=== PATIENT | female | born 1990 | race Caucasian/White ===

== ENCOUNTER 2018-07-15 10:06 | Inpatient (IN) | payer MEDICAID ==
[~2018-07-15] VITALS: Ht 160 cm; Wt 92.7 kg
[~2018-07-15 10:06] MED LIST: EPHEDrine SULFATE 50 MG/5 ML SYG ONE; FER325 PO; PREN1TAB49 PO
[2018-07-15] MEDS ORDERED: METHYLERGONOVINE 0.2 MG INJ IM PRN ×2 (10:30→18:30)
[2018-07-15] MEDS ORDERED: CARBOPROST 250 MCG INJ IM PRN ×2 (10:30→18:30)
[2018-07-15] MEDS ORDERED: MISOPROSTOL 200 MCG TAB PR PRN ×2 (10:30→18:30)
[2018-07-15] MEDS ORDERED: OXYTOCIN 30 UNITS/LR 500 ML IV PRN ×2 (10:30→18:30)
[2018-07-15] MEDS ORDERED: CEFAZOLIN 2 GM/50 ML (PMX) 50 ML IVPB SCH (10:30)
[2018-07-15 10:31] VITALS: BMI 28.4
[2018-07-15 10:45] VITALS: BP 109/74; PULSE 69; RESP 17
[2018-07-15 11:03] VITALS: BP 144/89; PULSE 106; RESP 18; Ht 160 cm; Wt 92.7 kg
[2018-07-15] MEDS: LACTATED RINGER'S 1,000 ML IV SCH (11:12)
--- NOTE | 2018-07-15 13:17 | PREAC ---
Date/Time of Note Date/Time of Note DATE: 07/15/18 TIME: 13:15 Anesthesia Eval and Record Evaluation Time Pre-Procedure Interview DATE: 07/15/18 TIME: 13:15 Age 27 Sex female NPO: 8 hrs Preoperative diagnosis Twin Planned procedure Repeat C/S Past Medical History Past Medical History: Includes GI: Obesity Heme: Anemia Surgery & Anesthesia Issues No known issue Meds Anticoagulation: No Beta Ronnie within 24 hr: No Reason Beta Ronnie not given: Pt. not on B-Ronnie Reported Medications Ferrous Sulfate* (Ferrous Sulfate*) 325 Mg Tabec, 325 MG PO DAILY, TAB 01/30/14 Vits W-Ca,Fe,Fa(<1MG) () 1 Tab Tablet, 1 TAB PO DAILY 07/15/12 Current Medications Lactated Ringer's 1,000 ml @ 125 mls/hr Q8H IV Last administered on 07/15/18at 11:12; Admin Dose 125 MLS/HR; Start 07/15/18 at 10:29 Cefazolin Sodium/ Dextrose 50 ml @ 100 mls/hr ONCE IVPB ; Start 07/15/18 at 10:30 Oxytocin/Lactated Ringer's 500 ml @ 0 mls/hr ONCE PRN IV BLEEDING; Start 07/15/18 at 10:30 Methylergonovine Maleate (Methergine) 0.2 mg ONCE PRN IM BLEEDING; Start 06/24 09/08 at 10:30 Carboprost Tromethamine (Hemabate) 250 mcg ONCE PRN IM BLEEDING; Start 07/15/18 at 10:30 Misoprostol (Cytotec) 1,000 mcg ONCE PRN IN BLEEDING; Start 07/15/18 at 10:30 Meds reviewed: Yes Allergies Coded Allergies: No Known Allergy (Unverified , 07/15/12) Allergies Reviewed: Yes Labs/Studies Labs Reviewed: Reviewed by anesthesiologist Result Diagram: 07/15/18 1100 Laboratory Tests 07/15/18 11:00 Blood Bank Test 07/15/18 11:00 Antibody Screen NEGATIVE Blood Type O POSITIVE Rh Immune Globulin Candidate NO test: Positive Pre-procedure Exam Last vitals Vital Signs Date Temp Pulse Resp B/P (MAP) Pulse Ox O2 O2 Flow FiO2 Time Delivery Rate 07/15/18 98.0 106 18 144/89 11:03 (107) Airway: Adequate mouth opening Mallampati: Mallampati II Teeth: Normal Lung: Normal Heart: Normal ASA Physical Status ASA physical status: 3 Emergency: None Planned Anesthetic Neuraxial: Spinal Planned Pain Management Sub-arachniod narcotics Pre-operative Attestations Prior to commencing anesthesia and surgery, the patient was re-evaluated, there was verification of: *The patient's identity *The results of appropriate recent lab work and preoperative vital signs *The above evaluation not changing prior to induction *Anesthetic plan, risk benefits, alternative and complications discussed with patient/family; questions answered; patient/family understands, accepts and wishes to proceed. KASSIDY MORTENSEN MD Jul 15, 2018 13:17
[2018-07-15] MEDS ORDERED: METOCLOPRAMIDE 10 MG INJ ONE (13:51)
[2018-07-15] MEDS ORDERED: OXYTOCIN 10 UNIT INJ ONE (13:51)
[2018-07-15] MEDS ORDERED: morphine SULFATE/PF (10 MG/10 ML) INJ ONE (13:51)
[2018-07-15] MEDS ORDERED: ONDANSETRON 4 MG INJ ONE (13:51)
[2018-07-15] MEDS ORDERED: OXYTOCIN 30 UNITS/LR 500 ML IV ONE (13:51)
[2018-07-15] MEDS ORDERED: MIDAZOLAM 1 MG/ML 2 ML INJ ONE ×2 (14:52→14:56)
[2018-07-15] MEDS ORDERED: KETOROLAC 60 MG INJ IM STA (15:18)
--- NOTE | 2018-07-15 15:25 | HP ---
Date/Time of Note Date/Time of Note DATE: 07/15/18 TIME: 15:22 OB - History Hx of Present Free Text/Dictation 27-year-old female 3 para 2 at 37 weeks and 4 days with twin admitted for repeat section Last Menstrual Period: October 25, 2017 Estimated Due Date: Aug 01, 2018 : 3 Para: 2 Care: Good Care Ultrasounds: Normal mid trimester US, Abnormal US findings (Multiple gestation) Obstetrical Complications: Other (Twin ) Medical Complications: None Past Family/Social History * Past Medical, Surgical, Family and Obstetric Histories reviewed from chart. Blood Type: O+ Rubella: immune RPR/VDRL: Negative GBS Status: Unknown HBsAG: Negative OB Admission Exam Vital Signs Vital Signs Vital Signs Date Temp Pulse Resp B/P (MAP) Pulse Ox O2 O2 Flow FiO2 Time Delivery Rate 07/15/18 98.0 106 18 144/89 11:03 (107) Physical Exam HEENT: WNL Heart: Rhythm Normal Lungs: Clear, Equal Abdomen: WNL Extremities: Normal Reflexes: Normal Effacement: 0% Station: -3 Membranes: Intact Heart Rate: 140's Decelerations: No Decelerations Varibility: Marked Contractions on Admission: 6-10 Minutes Apart Date/Time Contractions Began: ? Frequency of Contractions: ? Duration: ? Intensity: Mild Last 72 hours Lab Results CBC & BMP 07/15/18 11:00 OB Assessment/Plan Reason for admission: section Other Assessment: Twin at 37 weeks and 4 days Previous section Desires sterilization Other plan: Repeat section and tubal ligation JONNY APODACA MD Jul 15, 2018 15:25
[2018-07-15] MEDS ORDERED: AZITHROMYCIN 500MG/NS (PMX) 250 ML IVPB ONE (15:30)
--- NOTE | 2018-07-15 15:30 | OPR ---
Operative Report Planned Procedure Free Text/Dictation 27-year-old female 3 para 2 with uterine contractions at 37 weeks and 2 days and a previous and multiple gestation admitted for repeat section Procedure date Jul 15, 2018 Procedure(s) Repeat section and tubal ligation Performed by see signature line Refuse Laborer: JOSR DUNHAM Anesthesiologist: KASSIDY MORTENSEN MD Pre-procedure diagnosis 37 weeks and 4 days gestation Twin Previous x1 Desired sterilization Occasional uterine contractions [id number] Anesthesia Type: Blsou0p spinal Post-Procedure Post-procedure diagnosis Status post repeat section and bilateral tubal ligation Findings Live Babies , diamniotic dichorionic twin Normal-appearing right and left fallopian tubes and ovaries Estimated Blood Loss: 500 - 600 mls Specimen(s) Segments of right and left fallopian tube Grafts/Implant(s) none Complication(s) none Pt Condition post procedure: stable Disposition: PACU Procedure Description Under satisfactory anaesthesia a Pfannenstiel incision was made two fingerbreadth above and parallel to the symphysis of pubis around the previous scar and previous scar was removed Incision was extended laterally to the border of the Recti muscles on either sides. Incision was carried down with sharp and blunt dissection until fascia was reached. Anterior Recti muscle fascia was incised in mid portion and incision extended laterally to the border of skin incision. Fascia was mobilized from muscle superiorly and Recti muscles were from midline using sharp and blunt dissection. Peritoneum was visualized; Avoiding bowel and bladder it was incised . Incision was extended superiorly and inferiorly. Bladder blade was placed. Posterior peritoneum covering the lower segment of the uterus and lower segment of the uterus were incised.Low transverse uterine incision was made on lower segment of the uterus. Incision extended laterally to the border of Round Lig. on either sides and after rupturing membrane first baby was delivered from OT. position . Amniotic fluid appeared clear. Second baby's vertex was guided toward the incision and second baby was also delivered via vertex presentation, Cord blood was obtained on either infant and cords had 3 vessels . Placenta was delivered spontaneously and appeared intact and complete. Intrauterine cavity was rubbed with a laparotomy sponge. Uterine incision was closed in 2 layers using running stitches of No1 Monocryl. Hemostasis appeared secure. Ovaries and Fallopian tubes were within normal limits. Bilateral Tubal Ligation was performed by following procedure: R fallopian tube was raised in mid portion; a Alona clamp was placed below the fimbriae extending to proximal portion of the fallopian tube. Another clamp was placed parallel to the first and after incising the fallopian tube the stump was sutured using 0 Vicryl stitch. Hemostasis was secure . Same procedure was done on fallopian tube on the opposite side. Hemostasis appeared to be secure on ligated sites of either fallopian tubes. Announcing needle, lap sponge and instrument count to be correct abdomen was closed in layers as follows: Peritoneum and Recti muscles with running stitches of 2-0 Vicryl. Fascia with running stitch of No 1 PDS. Subcutaneous tissue with running stitches of 2-0 Monocryl and skin was closed using [place]ville. Patient tolerated the procedure well and was transferred to [facility] [place] in good condition. JONNY APODACA MD Jul 15, 2018 15:30
[2018-07-15] MEDS ORDERED: ONDANSETRON 4 MG INJ IV PRN (16:00)
[2018-07-15] MEDS ORDERED: morphine SULFATE/PF (10 MG/10 ML) INJ SPINAL ONE (16:00)
[2018-07-15] MEDS ORDERED: NALOXONE (0.4 MG/ML) INJ IV PRN (16:00)
[2018-07-15] MEDS ORDERED: DIPHENHYDRAMINE 50 MG INJ IV PRN (16:00)
[2018-07-15] MEDS ORDERED: EPHEDrine SULFATE 50 MG/5 ML SYG IV PRN (16:00)
[2018-07-15] MEDS ORDERED: morphine 2 MG INJ IV PRN ×2 (16:00)
[2018-07-15] MEDS: OXYTOCIN 30 UNITS/LR 500 ML IV SCH ×2 (16:10→19:46)
[2018-07-15] MEDS: KETOROLAC 30 MG INJ IV PRN (16:55)
[2018-07-15 18:05] VITALS: BP 149/85; PULSE 62; RESP 18
[2018-07-15] MEDS ORDERED: LACTATED RINGER'S 1,000 ML IV SCH (18:08)
[2018-07-15 18:21] VITALS: BP 136/85; PULSE 69; RESP 18
--- NOTE | 2018-07-15 18:21 | NUR ---
MD AWARE OF HIGH BP'S IN RECOVERY, ORDERED [facility] TO BE DRAWN.
[2018-07-15] MEDS ORDERED: NA PHOSPHATE/BIPHOS 133 ML ENEMA PR PRN (18:30)
[2018-07-15] MEDS ORDERED: LANOLIN HPA 1 PKT TOP PRN (18:30)
[2018-07-15 18:45] VITALS: BP 152/84; PULSE 65; RESP 18
--- NOTE | 2018-07-15 19:10 | PAC ---
Date/Time of Note Date/Time of Note DATE: 07/15/18 TIME: 19:10 Post-Anesthesia Notes Post-Anesthesia Note Last documented vital signs Vital Signs Date Temp Pulse Resp B/P (MAP) Pulse Ox O2 O2 Flow FiO2 Time Delivery Rate 07/15/18 98.0 65 18 152/84 95 Room Air 18:45 (106) Activity: WNL Respiratory function: WNL Cardiovascular function: WNL Mental status: Baseline Pain reasonably controlled: Yes Hydration appropriate: Yes Nausea/Vomiting absent: Yes KASSIDY MORTENSEN MD Jul 15, 2018 19:10
[2018-07-15 19:55] VITALS: BP 135/79; PULSE 67; RESP 18
[2018-07-15] MEDS: SENNA/DOCUSATE NA (8.6MG/50MG) TAB PO SCH (21:00)
[2018-07-15] MEDS: IBUPROFEN 800 MG TAB PO SCH (22:00)
[2018-07-15] MEDS: CEFAZOLIN 2 GM/50 ML (PMX) 50 ML IVPB SCH (22:05)
[2018-07-16] VITALS: BP 130/74; PULSE 65; RESP 18
[2018-07-16] MEDS: OXYTOCIN 30 UNITS/LR 500 ML IV SCH ×5 (00:30→16:30)
[2018-07-16] MEDS: KETOROLAC 30 MG INJ IV PRN ×3 (01:59→13:34)
[2018-07-16 04:15] VITALS: BP 109/55; PULSE 69; RESP 18
--- NOTE | 2018-07-16 05:00 | NUR ---
EOSS VS STABLE, DRESSING CLEAN DRY & INTACT, LOCHIA MODERATE, STEPHENS DRAINING TO CLEAR URINE, BONDING WELL WITH BABIES,
[2018-07-16] MEDS: CEFAZOLIN 2 GM/50 ML (PMX) 50 ML IVPB SCH ×2 (05:33→13:34)
[2018-07-16] MEDS: CLINDAMYCIN 300 MG CAP PO SCH ×5 (05:33→23:51)
[2018-07-16] MEDS: IBUPROFEN 800 MG TAB PO SCH ×3 (06:00→22:01)
[2018-07-16 07:17] VITALS: BP_SYST 121; BP_SYST 125; BP_DIAS 74; BP_DIAS 75; PULSE 63; PULSE 82; RESP 18
[2018-07-16] MEDS: SENNA/DOCUSATE NA (8.6MG/50MG) TAB PO SCH ×2 (08:36→20:49)
[2018-07-16] MEDS: LACTATED RINGER'S 1,000 ML IV SCH (09:03)
[2018-07-16] MEDS ORDERED: BISACODYL 10 MG SUPP PR ONE (10:30)
[2018-07-16 12:08] VITALS: BP 107/69; PULSE 70; RESP 19
[2018-07-16 15:45] VITALS: BP_SYST 76; PULSE 76; RESP 18
[2018-07-16] MEDS: OXYCODONE/ACETAMINOPHEN (5/325) TAB PO PRN (16:32)
--- NOTE | 2018-07-16 17:25 | OPPN ---
Date/Time of Note Date/Time of Note DATE: 07/16/18 TIME: 17:18 Anesthesia Follow up Anesthesia Follow up Last documented vital signs Vital Signs Date Temp Pulse Resp B/P (MAP) Pulse Ox O2 O2 Flow FiO2 Time Delivery Rate 07/16/18 98.9 76 18 76/ Room Air 15:45 07/16/18 98 12:08 Respiratory function: WNL Cardiovascular function: WNL Comments Postoperative pain is in good control with spinal duramorph with intermittent use of opioid supplements. No other specific complaints. Vital signs stable. KASSIDY MORTENSEN MD Jul 16, 2018 17:25
--- NOTE | 2018-07-16 18:12 | NUR ---
EOSS:PATIENT IN STABLE CONDITION AND BONDING WELL WITH THE BABIES.AMBULATING WELL AND DUE TO VOID.
--- NOTE | 2018-07-16 18:14 | PN ---
Date/Time of Note Date/Time of Note DATE: 07/16/18 TIME: 18:13 Assessment/Plan VTE Prophylaxis VTE Prophylaxis Intervention: ambulation Lines/Catheters IV Catheter Type (from Nrsg): Saline Lock Assessment/Plan Assessment/Plan Status post repeat and tubal ligation postop day #1 Advance diet and ambulate Continue to monitor vital signs Subjective 24 Hr Interval Summary No bowel movement but passing flatus Constitutional: no complaints, improved, ambulates, BM, flatus, urine output Pain Control: well controlled Exam/Review of Systems Vital Signs Vitals Vital Signs Date Temp Pulse Resp B/P (MAP) Pulse Ox O2 O2 Flow FiO2 Time Delivery Rate 07/16/18 98.9 76 18 76/ Room Air 15:45 07/16/18 98 12:08 Intake and Output 07/15/18 07/15/18 07/16/18 1515:00 23:00 07:00 IntakeIntake Total 800 ml 500 ml OutputOutput Total 553 ml 900 ml BalanceBalance 247 ml -400 ml Exam Free Text/Dictation Abdomen is soft with present bowel sounds Incision is covered Constitutional: alert, oriented, well developed Psych: no complaints, nl mood/affect Head: normocephalic, atraumatic Eyes: nl conjunctiva, EOMI, nl lids, nl sclera ENMT: nl external ears & nose, nl lips & teeth, nl nasal mucosa & septum, mucosa pink and moist Neck: supple, non-tender Respiratory: clear to auscultation, normal air movement Cardiovascular: regular rate and rhythm, nl pulses Gastrointestinal: soft, nl liver, spleen, non-tender Musculoskeletal: nl extremities to inspection, nl gait and stance Extremities: normal pulses Neurological: WIND INSTRUMENT REPAIRER II-XII intact, nl mental status, nl speech, nl strength Skin: nl turgor, rash or lesions Lymph: nl lymph nodes Results Result Diagram: 07/16/18 0622 07/15/18 1835 JONNY APODACA MD Jul 16, 2018 18:14
[2018-07-16 19:55] VITALS: BP 135/84; PULSE 69; RESP 18
[2018-07-16] MEDS: HYDROCODONE/APAP (5/325) TAB PO PRN (20:49)
[2018-07-17 04:09] VITALS: BP 107/67; PULSE 65; RESP 18
[2018-07-17] MEDS: HYDROCODONE/APAP (5/325) TAB PO PRN (04:18)
--- NOTE | 2018-07-17 04:36 | NUR ---
EOSS VS STABLE, PT UP & VOIDING, REPORTS PASSING A LOT OF GAS AND BM LAST NIGHT, BONDING WELL WITH TWINS,
[2018-07-17] MEDS: CLINDAMYCIN 300 MG CAP PO SCH ×4 (05:37→23:26)
[2018-07-17] MEDS: IBUPROFEN 800 MG TAB PO SCH ×3 (05:37→22:01)
[2018-07-17 07:45] VITALS: BP 115/70; PULSE 58; RESP 18
[2018-07-17] MEDS: SENNA/DOCUSATE NA (8.6MG/50MG) TAB PO SCH ×2 (12:04→22:01)
[2018-07-17] MEDS: OXYCODONE/ACETAMINOPHEN (5/325) TAB PO PRN ×2 (12:05→19:48)
[2018-07-17] MEDS ORDERED: ACETAMINOPHEN 325 MG TAB PO SCH (14:00)
[2018-07-17] MEDS ORDERED: IBUP800T48 PO (14:11)
[2018-07-17] MEDS ORDERED: ACET325T33 PO (14:11)
--- NOTE | 2018-07-17 15:12 | DS ---
Date/Time of Note Date/Time of Note DATE: 07/17/18 TIME: 15:10 Discharge Summary Admission/Discharge Info Admit Date/Time Jul 15, 2018 at 10:06 Discharge Date/Time July 17 or July 18, 2018 Discharge Diagnosis Status post and tubal ligation Patient Condition: Good Procedures Repeat section and bilateral tubal ligation Hx of Present Illness 27-year-old female underwent repeat section bilateral tubal ligation at 37+ weeks with twin gestation Hospital Course Hospital course remained uncomplicated Patient tolerated diet well was ambulating without problems Discharge home on the second or third day with good prognosis and condition Home Meds Active Scripts Acetaminophen* (Tylenol*) 325 Mg Tablet, 650 MG PO Q6H, #60 TAB 0 Refills Prov:JONNY APODACA MD 07/17/18 Ibuprofen* (Motrin*) 800 Mg Tab, 800 MG PO Q8, #60 TAB 0 Refills Prov:JONNY APODACA MD 07/17/18 Reported Medications Ferrous Sulfate* (Ferrous Sulfate*) 325 Mg Tabec, 325 MG PO DAILY, TAB 01/30/14 Vits W-Ca,Fe,Fa(<1MG) () 1 Tab Tablet, 1 TAB PO DAILY 07/15/12 Follow-up Plan To clinic in 2/3 /4 days for staple removal Primary Care Provider Care Physician No Primary Time spent on discharge: > 30 minutes JONNY APODACA MD Jul 17, 2018 15:12
--- NOTE | 2018-07-17 15:13 | DS ---
Date/Time of Note Date/Time of Note Home today or next day DATE: 07/17/18 TIME: 15:12 Obstetrical Discharge Record Final Diagnosis Final Diagnosis: Term delivered Other Final Diagnosis Status post repeat and tubal ligation Vaginal Delivery Obstetrical Delivery: Bilateral Tubal Ligation Section Section: Repeat Complications Other (Multiple gestation) Condition on Discharge Physical Assessment Last Vitals: See nurse's notes Voiding: Yes Bowel Movement: Yes Breast: Soft, non-tender, Filling Fundus: Firm Abdomen and Incision: Abdomen is soft with present bowel sounds Incision is without induration and or erythema appears to be healing well Episiotomy: Not applicable Calf Tenderness: No Patient Condition: Good JONNY APODACA MD Jul 17, 2018 15:13
--- NOTE | 2018-07-17 15:14 | PD.PPDC ---
PLANT OPERATIONS MANAGER Discharge Instruction Provider Information Physician Information 27-year-old female had repeat and tubal ligation Diagnosis [id number] Final Diagnosis: Innuk0o Status post repeat tubal ligation Condition [id number] Patient Condition: Lahxa6l Good Diet [id number] Diet: Rockr9f Resume Regular Diet Activity/Restrictions [id number] Activity: Eoeoe7j May Shower Rkevc4Al Restrictions: Apjgm9l No Exercising No Lifting Nothing in the Vagina [id number] Return to Work or School: [id number] Sep 14, 2018 Wound/Drain Care Instructions [id number] Wound/Drain Care Instructions: Mwuzj6v Keep clean and dry Follow-up Follow-up with Physician: 2, 3, Day/Days Return to clinic for [id number] AVIONICS TECHNICIAN Instructions: Odmqg7r Fever greater than 101 Chills [id number] OB Instructions: Mcjpm8i Breast Tenderness Depression Comment: Pelvic rest no hard activity for 2-month Ocixt6Mr Surgical Instructions: Uazqz3g Incisional Drainage Incisional Redness JONNY APODACA MD Jul 17, 2018 15:14
[2018-07-17 16:00] VITALS: BP 105/63; PULSE 68; RESP 18
--- NOTE | 2018-07-17 18:37 | NUR ---
EOSS:PATIENT IN STABLE CONDITION AND BONDING WELL WITH THE BABIES.NEEDS HELP WITH THE FEEDING OF THE TWIN BABIES.
[2018-07-17 19:20] VITALS: BP 111/57; PULSE 77; RESP 19
[2018-07-18] MEDS: OXYCODONE/ACETAMINOPHEN (5/325) TAB PO PRN (03:36)
--- NOTE | 2018-07-18 04:56 | NUR ---
eoss. stable vital signs. ambulating & voiding well. surgical incision intact clean & dry. bonding well with babies
[2018-07-18] MEDS: CLINDAMYCIN 300 MG CAP PO SCH ×2 (05:58→11:45)
[2018-07-18] MEDS: IBUPROFEN 800 MG TAB PO SCH ×2 (05:58→13:40)
[2018-07-18 08:25] VITALS: BP 115/66; PULSE 58; RESP 16
[2018-07-18] MEDS ORDERED: DIPHTH/TET/ACEL PERTUSS (ADULT) 0.5 ML VIAL IM* ONE (09:00)
[2018-07-18] MEDS: SENNA/DOCUSATE NA (8.6MG/50MG) TAB PO SCH (09:00)
[2018-07-18] MEDS ORDERED: MEASLES,MUMPS,RUBELLA VACCINE INJ SC* ONE (09:00)
--- NOTE | 2018-07-18 11:45 | NUR ---
Dr. Collier spoke to the patient via electrician journeyman wireman and informed her on the importance of feeding both babies Neosure formula until 6 months of age. He also instructed her to return [facility] in 2-3 days for the babies follow up appointment. Pt verbalized understanding. Addendum: 07/18/18 at 1210 by CRISPIN SEO RN Amended: Links added.
--- NOTE | 2018-07-18 15:52 | NUR ---
DISCHARGED IN STABLE CONDITION WITH BABY.
== END 2018-07-18 15:50 | disposition home or self-care (01) | DRG 785 ==
LOC: L-D 10:06 → PP1 18:00
PROVIDERS: ADMIT Obstetrics & Gynecology; ATTEND Obstetrics & Gynecology
PROC: 0UL70ZZ Occlusion of Bilateral Fallopian Tubes, Open Approach (ICD-10-PCS; 2018-07-15)
PROC: 10D00Z1 Extraction of Products of Conception, Low, Open Approach (ICD-10-PCS; principal; 2018-07-15 12:30)
DX: O30.003 Twin pregnancy, unspecified number of placenta and unspecified number of amniotic sacs, third trimester (principal); O34.211 Maternal care for low transverse scar from previous cesarean delivery; Z30.2 Encounter for sterilization; Z3A.37 37 weeks gestation of pregnancy; Z37.2 Twins, both liveborn
CPT/HCPCS: 80053; 81001; 84560; 85025; 85384; 85610; 85730; 86592; 86850; 86900; 86901; 87340; 88302; 88307; 99464; J0456; J0690; J1885; J2250; J2274; J2405; J2590; J2765; J7120